=== PATIENT | female | born 1975 | race Two or more races ===

== ENCOUNTER 2024-12-29 13:30 | Emergency (ER) | payer OTHER ==
[~2024-12-29] VITALS: Ht 177.8 cm; Wt 90.7 kg
[2024-12-29] MEDS ORDERED: LAMICTAL200 MG (14:53)
[2024-12-29] MEDS ORDERED: FLUVOXAMINE MA100 MG (14:53)
[2024-12-29] MEDS ORDERED: CARAFATE1 GM (14:54)
[2024-12-29] MEDS ORDERED: RINGERS SOLUTION,LACTATED 1,000 ML IV STA (18:03)
[2024-12-29 18:14] LABS: BASO % 0.6 % (0.1-1.2); EOS # 0.11 (0.04-0.54); EOS % 1.3 % (0.7-7.0); LYMPH # 2.42 (1.18-3.74); LYMPH % 29.2 % (19.3-53.1); MEAN PLATELET VOLUME 11.30 fl (9.4-12.4); MONO # 0.60 (0.24-0.82); MONO % 7.2 % (4.7-12.5); NEUT # 5.10 (1.56-6.13); NEUT % 61.6 % (34.0-71.1); RED CELL DISTRIBUTION WIDTH 13.7 % (11.6-14.4)
[2024-12-29 19:36] LABS: URINE APPEARANCE Clear; URINE BILIRRUBIN Negative (NEGATIVE); URINE BLOOD Negative; URINE COLOR Yellow; URINE GLUCOSE Negative (NEGATIVE); URINE KETONE Trace (NEGATIVE); URINE LEUKOCYTE Negative; URINE NITRATE Negative; URINE PROTEIN Negative (NEGATIVE); URINE UROBILINOGEN 0.2 E.U./dl
[2024-12-29 19:39] LABS: URINE BACTERIA 507.6 uL (0.0-1933); URINE EPITHELIAL CELLS 32.4 uL (0.0-38.8); URINE RBC 12.7 uL (0.0-20.8); URINE WBC 1.8 uL (0.0-23.2)
[2024-12-29 19:58] LABS: URINE CAST 0.29 uL (0.0-1.40)
== END 2024-12-29 23:12 | disposition home or self-care (01) ==
LOC: ER 13:30
DX: D25.9 Leiomyoma of uterus, unspecified (principal)

== ENCOUNTER 2025-01-23 12:29 | Emergency (ER) | payer OTHER ==
[~2025-01-23] VITALS: Ht 175.3 cm; Wt 89.8 kg
[~2025-01-23 12:29] MED LIST: CARAFATE1 GM; FLUVOXAMINE MA100 MG; LAMICTAL200 MG
== END 2025-01-23 15:47 | disposition home or self-care (01) ==
LOC: ER 12:29
DX: R10.2 Pelvic and perineal pain (principal); D25.9 Leiomyoma of uterus, unspecified

== ENCOUNTER 2025-02-02 16:10 | Emergency (ER) | payer OTHER ==
[~2025-02-02] VITALS: Ht 177.8 cm; Wt 89.8 kg
[2025-02-02] MEDS ORDERED: KETOROLAC TROMETHAMINE 30 MG VIAL IV STA (17:05)
[2025-02-02] MEDS ORDERED: CIPROFLOXACIN IN 5 % DEXTROSE 400 MG/200 ML PIGGYBAG IV STA (17:06)
[2025-02-02 18:23] LABS: URINE APPEARANCE Clear; URINE BILIRRUBIN Negative (NEGATIVE); URINE BLOOD Negative; URINE COLOR Yellow; URINE GLUCOSE Negative (NEGATIVE); URINE KETONE Negative (NEGATIVE); URINE LEUKOCYTE Trace; URINE NITRATE Negative; URINE PROTEIN Negative (NEGATIVE); URINE UROBILINOGEN 0.2 E.U./dl
[2025-02-02 18:26] LABS: URINE BACTERIA 867.5 uL (0.0-1933); URINE EPITHELIAL CELLS 24.1 uL (0.0-38.8); URINE RBC 6.3 uL (0.0-20.8); URINE WBC 14.7 uL (0.0-23.2)
[2025-02-02 18:28] LABS: URINE CAST 0.43 uL (0.0-1.40)
== END 2025-02-02 20:44 | disposition home or self-care (01) ==
LOC: ER 16:10
DX: R30.0 Dysuria (principal)

== ENCOUNTER 2025-02-10 15:03 | Emergency (ER) | payer OTHER ==
[~2025-02-10] VITALS: Ht 177.8 cm; Wt 89.8 kg
[2025-02-10 16:03] VITALS: BP 139/86; O2SAT 98
[2025-02-10] MEDS ORDERED: KETOROLAC TROMETHAMINE 30 MG VIAL IM STA (18:23)
[2025-02-10] MEDS ORDERED: KETOROLAC TROMETHAMINE 30 MG VIAL ONE (18:37)
== END 2025-02-10 19:05 | disposition home or self-care (01) ==
LOC: ER 15:03
DX: R10.2 Pelvic and perineal pain (principal); M54.50 Low back pain, unspecified